=== PATIENT | male | born 1955 | race Two or more races ===

== ENCOUNTER 2022-02-19 15:05 | Inpatient (IN) | payer MEDICAID, OTHER ==
[~2022-02-19] VITALS: Ht 167.6 cm; Wt 64.5 kg
[2022-02-19 16:44] LABS: Basophils # (auto) 0 10 ^3/uL (0-0.2); Basophils % (auto) 0.5 % (0.0-2.0); Eosinophils # (auto) 0.1 10 ^3/uL (0-0.8); Eosinophils % (auto) 0.7 % (0.0-7.0); Hematocrit 47.7 % (41.0-53.0); Hemoglobin 15.7 g/dL (13.5-17.5); Lymphocytes # (auto) 1.4 10 ^3/uL (0.4-5.4); Lymphocytes % (auto) 14.6 % (10.0-50.0); Mean Corpuscular Hemoglobin 28.5 pg (28.0-32.0); Mean Corpuscular Hgb Conc. 32.9 g/dL (32.0-36.0); Mean Corpuscular Volume 86.7 fL (80.0-100.0); Monocytes # (auto) 0.7 10 ^3/uL (0-1.3); Monocytes % (auto) 7.4 % (0.0-12.0); Neutrophils # (auto) 7.5 10 ^3/uL (1.6-8.6); Neutrophils % (auto) 76.8 % (37.0-80.0); Nucleated Red Blood Cells % 0.1 %; Red Blood Cells 5.51 10^6/uL (4.5-5.90); Red Cell Distribution Width 13.8 % (11.8-14.3); White Blood Cell 9.8 10^3/uL (4.4-10.8)
[2022-02-19 17:03] LABS: Albumin 3.7 g/dL (3.4-5.0); Calcium 9.2 mg/dL (8.5-10.1); Magnesium 2.3 mg/dL (1.6-2.6)
[2022-02-19 17:07] LABS: BUN/Creatinine Ratio 22.1; Bilirubin, Total 0.2 mg/dL (0.2-1.0); Total Protein 7.1 g/dL (6.4-8.2)
[2022-02-19] MEDS ORDERED: HEPARIN SODIUM (PORCINE) 5000 UNITS/ML 1ML VIAL IV ONE (18:00)
[2022-02-19] MEDS ORDERED: CLOPIDOGREL 300 MG TAB PO ONE (18:00)
[2022-02-19] MEDS ORDERED: HEPARIN DRIP/D5W 100UNITS/ML 250 ML IV SCH (18:00)
[2022-02-19 19:02] LABS: INR 1.05 (0.9-1.15); Partial Thromboplastin Time 28.5 sec (24.6-33.4)
[2022-02-19] MEDS ORDERED: ONDANSETRON HCL 4 MG/2 ML VIAL IV PRN (21:30)
[2022-02-19] MEDS ORDERED: MORPHINE SULFATE INJ 2 MG/ml SYRG IV PRN (21:30)
[2022-02-19] MEDS ORDERED: NITROGLYCERIN 0.4 MG SL TAB SL PRN (21:30)
[2022-02-19] MEDS ORDERED: ACETAMINOPHEN 325 MG TAB PO PRN (21:30)
[2022-02-19 22:26] LABS: Urine Bacteria FEW /hpf (None Seen); Urine Blood Negative /uL (Negative); Urine Mucus FEW (None Seen); Urine Specific Gravity 1.023 (1.001-1.035); Urine WBC 7 /hpf (0 - 3)
[2022-02-19] MEDS: SODIUM CHLOR 0.9% PF (SALINE LOCK) 10ML VIAL/SYR IV SCH (22:52)
[2022-02-19] MEDS: ATORVASTATIN 20 MG TAB PO SCH (23:10)
[2022-02-20] MEDS: D5W/SOD CHLO 0.9% 1,000 ML IV SCH ×2 (00:01→10:50)
[2022-02-20 00:47] LABS: INR 1.07 (0.9-1.15); Partial Thromboplastin Time 35.6 sec (24.6-33.4)
[2022-02-20] MEDS: SODIUM CHLOR 0.9% PF (SALINE LOCK) 10ML VIAL/SYR IV SCH ×3 (06:02→22:00)
[2022-02-20 06:41] LABS: Calcium 8.6 mg/dL (8.5-10.1); Potassium 4.2 mmol/L (3.5-5.1)
[2022-02-20 06:47] LABS: Albumin 3.1 g/dL (3.4-5.0); BUN/Creatinine Ratio 24.4; Basophils # (auto) 0.1 10 ^3/uL (0-0.2); Basophils % (auto) 0.8 % (0.0-2.0); Bilirubin, Total 0.3 mg/dL (0.2-1.0); Eosinophils # (auto) 0.2 10 ^3/uL (0-0.8); Eosinophils % (auto) 2.2 % (0.0-7.0); Hematocrit 44.6 % (41.0-53.0); Hemoglobin 14.8 g/dL (13.5-17.5); Mean Corpuscular Hemoglobin 28.5 pg (28.0-32.0); Mean Corpuscular Hgb Conc. 33.3 g/dL (32.0-36.0); Mean Corpuscular Volume 85.6 fL (80.0-100.0); Monocytes # (auto) 0.6 10 ^3/uL (0-1.3); Monocytes % (auto) 8.4 % (0.0-12.0); Neutrophils # (auto) 4.7 10 ^3/uL (1.6-8.6); Neutrophils % (auto) 61.6 % (37.0-80.0); Nucleated Red Blood Cells % 0.1 %; Red Blood Cells 5.21 10^6/uL (4.5-5.90); Red Cell Distribution Width 13.5 % (11.8-14.3); Total Protein 6.2 g/dL (6.4-8.2); White Blood Cell 7.6 10^3/uL (4.4-10.8)
[2022-02-20] MEDS: ASPirin 81 mg TAB PO SCH (10:07)
[2022-02-20] MEDS: PANTOPRAZOLE 40 MG TAB PO SCH (10:07)
[2022-02-20 13:16] LABS: INR 1.04 (0.9-1.15); Partial Thromboplastin Time 38.3 sec (24.6-33.4)
[2022-02-20] MEDS: HEPARIN DRIP/D5W 100UNITS/ML 250 ML IV SCH (14:16)
[2022-02-20 23:02] LABS: INR 1.09 (0.9-1.15); Partial Thromboplastin Time 60.4 sec (24.6-33.4)
[2022-02-20] MEDS: ATORVASTATIN 20 MG TAB PO SCH (23:54)
[2022-02-20] MEDS ORDERED: NICOTINE 21MG/24 HR TOPICAL PATCH TD ONE (23:55)
[2022-02-21] VITALS (13 sets, daily range): BP systolic 121–159; BP diastolic 72–94
[2022-02-21] MEDS: D5W/SOD CHLO 0.9% 1,000 ML IV SCH (00:10)
[2022-02-21] MEDS: SODIUM CHLOR 0.9% PF (SALINE LOCK) 10ML VIAL/SYR IV SCH ×3 (05:40→20:46)
[2022-02-21 05:42] LABS: INR 1.07 (0.9-1.15)
[2022-02-21] MEDS ORDERED: HEPARIN SODIUM (PORCINE) 5000 UNITS/ML 1ML VIAL IV ONE (06:15)
[2022-02-21] MEDS ORDERED: IODIXANOL 320MG/ML 100ML BTL IV ONE (09:55)
[2022-02-21] MEDS ORDERED: LIDOCAINE 2%HCL (LOCAL ANESTH.) INJ 10ml MDV ONE (09:56)
[2022-02-21] MEDS: PANTOPRAZOLE 40 MG TAB PO SCH (10:00)
[2022-02-21] MEDS ORDERED: fentaNYL CITRATE 100 MCG/2 ML VL ONE (10:36)
[2022-02-21] MEDS ORDERED: ANGIOMAX 250 MG VIAL IV ONE (10:36)
[2022-02-21] MEDS ORDERED: MIDAZOLAM HCL 2MG/2ML 2ml VIAL (1mg/ml) ONE (10:37)
[2022-02-21] MEDS ORDERED: SODIUM CHL 0.9% 50 ML ONE (10:37)
[2022-02-21] MEDS: HEPARIN DRIP/D5W 100UNITS/ML 250 ML IV SCH (11:15)
[2022-02-21] MEDS ORDERED: VERAPAMIL 2.5MG/ML INJ 2ML VIAL IV ONE (11:40)
[2022-02-21] MEDS ORDERED: HEPARIN SODIUM (PORCINE) 5000 UNITS/ML 1ML VIAL ONE (11:40)
[2022-02-21] MEDS ORDERED: ASPirin 81 mg TAB ONE (12:07)
[2022-02-21] MEDS ORDERED: CLOPIDOGREL 300 MG TAB ONE (12:07)
[2022-02-21] MEDS: ASPirin 81 mg TAB PO SCH (12:14)
[2022-02-21] MEDS: SODIUM CHLORIDE 0.9% 1,000 ML IV SCH ×2 (14:08→16:38)
[2022-02-21] MEDS ORDERED: FLUO-126 PO (16:35)
[2022-02-21] MEDS ORDERED: ASPI1TAB20 PO (16:35)
[2022-02-21] MEDS ORDERED: PANT40TA2 PO (16:35)
[2022-02-21] MEDS: ATORVASTATIN 20 MG TAB PO SCH (20:46)
[2022-02-21] MEDS: TEMAZEPAM 15 MG CAP PO PRN (23:55)
[2022-02-22] MEDS: D5W/SOD CHLO 0.9% 1,000 ML IV SCH ×4 (02:50→18:14)
[2022-02-22 05:00] VITALS: BP 93/64
[2022-02-22] MEDS: SODIUM CHLOR 0.9% PF (SALINE LOCK) 10ML VIAL/SYR IV SCH ×3 (05:33→21:48)
[2022-02-22 08:30] VITALS: BP 121/68
[2022-02-22] MEDS: PANTOPRAZOLE 40 MG TAB PO SCH (09:29)
[2022-02-22] MEDS: CLOPIDOGREL BISULFATE 75 MG TAB PO SCH (09:29)
[2022-02-22] MEDS: ASPirin 81 mg TAB PO SCH (09:29)
[2022-02-22 12:00] VITALS: BP 120/73
[2022-02-22 16:30] VITALS: BP 108/75
[2022-02-22 21:46] VITALS: BP 127/73
[2022-02-22] MEDS: ATORVASTATIN 20 MG TAB PO SCH (21:47)
[2022-02-22] MEDS: TEMAZEPAM 15 MG CAP PO PRN (21:48)
[2022-02-23 05:00] VITALS: BP 122/66
[2022-02-23] MEDS: SODIUM CHLOR 0.9% PF (SALINE LOCK) 10ML VIAL/SYR IV SCH ×3 (06:27→21:49)
[2022-02-23 09:00] VITALS: BP 115/69
[2022-02-23] MEDS: CLOPIDOGREL BISULFATE 75 MG TAB PO SCH (09:50)
[2022-02-23] MEDS: ASPirin 81 mg TAB PO SCH (09:50)
[2022-02-23] MEDS: PANTOPRAZOLE 40 MG TAB PO SCH (09:51)
[2022-02-23] MEDS: NICOTINE 7MG/24HR TOPICAL PATCH TD SCH (09:51)
[2022-02-23 13:00] VITALS: BP 114/67
[2022-02-23] MEDS ORDERED: diphenhdrAMINE HCL 50 MG/1 ML VL IV STA (16:50)
[2022-02-23 17:00] VITALS: BP 127/74
[2022-02-23] MEDS: D5W/SOD CHLO 0.9% 1,000 ML IV SCH (18:50)
[2022-02-23] MEDS: ATORVASTATIN 20 MG TAB PO SCH (21:49)
[2022-02-23 22:00] VITALS: BP 122/68
[2022-02-23] MEDS ORDERED: diphenhdrAMINE HCL 25 MG CAP PO ONE (22:15)
[2022-02-23] MEDS ORDERED: methylPREDNISolone SOD SUCC 125 MG/2 ML VL IV ONE (22:15)
[2022-02-24] VITALS (11 sets, daily range): BP systolic 106–153; BP diastolic 64–78
[2022-02-24] MEDS: D5W/SOD CHLO 0.9% 1,000 ML IV SCH ×2 (02:59→17:41)
[2022-02-24] MEDS: SODIUM CHLOR 0.9% PF (SALINE LOCK) 10ML VIAL/SYR IV SCH ×3 (06:05→21:17)
[2022-02-24] MEDS: CLOPIDOGREL BISULFATE 75 MG TAB PO SCH (10:00)
[2022-02-24] MEDS: ASPirin 81 mg TAB PO SCH (10:00)
[2022-02-24] MEDS ORDERED: LIDOCAINE 2%HCL (LOCAL ANESTH.) INJ 10ml MDV ONE (10:03)
[2022-02-24] MEDS ORDERED: IODIXANOL 320MG/ML 100ML BTL IV ONE (10:03)
[2022-02-24] MEDS ORDERED: HEPARIN IN NS 1000Units/500mL 1,500 ML ONE (10:03)
[2022-02-24] MEDS ORDERED: ANGIOMAX 250 MG VIAL IV ONE (10:04)
[2022-02-24] MEDS ORDERED: HEPARIN SODIUM (PORCINE) 5000 UNITS/ML 1ML VIAL ONE (10:04)
[2022-02-24] MEDS ORDERED: SODIUM CHL 0.9% 50 ML ONE (10:05)
[2022-02-24] MEDS ORDERED: VERAPAMIL 2.5MG/ML INJ 2ML VIAL IV ONE (10:05)
[2022-02-24] MEDS ORDERED: fentaNYL CITRATE 100 MCG/2 ML VL ONE (10:05)
[2022-02-24] MEDS ORDERED: MIDAZOLAM HCL 2MG/2ML 2ml VIAL (1mg/ml) ONE (10:05)
[2022-02-24] MEDS ORDERED: ASPirin 81 mg TAB ONE (11:02)
[2022-02-24] MEDS ORDERED: CLOPIDOGREL BISULFATE 75 MG TAB ONE (11:02)
[2022-02-24] MEDS: PANTOPRAZOLE 40 MG TAB PO SCH (13:37)
[2022-02-24] MEDS: NICOTINE 7MG/24HR TOPICAL PATCH TD SCH (13:37)
[2022-02-24] MEDS: ATORVASTATIN 20 MG TAB PO SCH (21:17)
[2022-02-25 05:00] VITALS: BP_SYST 118; BP_SYST 144; BP_DIAS 67; BP_DIAS 81
[2022-02-25] MEDS: SODIUM CHLOR 0.9% PF (SALINE LOCK) 10ML VIAL/SYR IV SCH ×2 (05:15→07:35)
[2022-02-25] MEDS: D5W/SOD CHLO 0.9% 1,000 ML IV SCH (07:34)
[2022-02-25 08:54] VITALS: BP 119/69
[2022-02-25] MEDS: NICOTINE 7MG/24HR TOPICAL PATCH TD SCH (09:16)
[2022-02-25] MEDS: PANTOPRAZOLE 40 MG TAB PO SCH (09:17)
[2022-02-25] MEDS: ASPirin 81 mg TAB PO SCH (09:17)
[2022-02-25] MEDS: CLOPIDOGREL BISULFATE 75 MG TAB PO SCH (09:17)
[2022-02-25] MEDS ORDERED: CLOP75TA70 PO (10:48)
[2022-02-25] MEDS ORDERED: ATOR20TA50 PO (10:48)
[2022-02-25 11:41] VITALS: BP 131/74
== END 2022-02-25 13:19 | disposition home or self-care (01) | DRG 174 ==
LOC: ER 15:05 → TELE 21:16 → TELE-WESTW 02-21 04:08
PROVIDERS: ADMIT Nurse Practitioner; ATTEND Internal Medicine Pulmonary Disease
PROC: B211YZZ Fluoroscopy of Multiple Coronary Arteries using Other Contrast (ICD-10-PCS; principal; 2022-02-21)
PROC: 027034Z Dilation of Coronary Artery, One Artery with Drug-eluting Intraluminal Device, Percutaneous Approach (ICD-10-PCS; 2022-02-21)
PROC: B241ZZ3 Ultrasonography of Multiple Coronary Arteries, Intravascular (ICD-10-PCS; 2022-02-21)
PROC: 027034Z Dilation of Coronary Artery, One Artery with Drug-eluting Intraluminal Device, Percutaneous Approach (ICD-10-PCS; 2022-02-24)
PROC: B240ZZ3 Ultrasonography of Single Coronary Artery, Intravascular (ICD-10-PCS; 2022-02-24)
PROC: B210YZZ Fluoroscopy of Single Coronary Artery using Other Contrast (ICD-10-PCS; 2022-02-24)
PROC: B41CYZZ Fluoroscopy of Pelvic Arteries using Other Contrast (ICD-10-PCS; 2022-02-24)
DX: I21.4 Non-ST elevation (NSTEMI) myocardial infarction (principal); E88.09 Other disorders of plasma-protein metabolism, not elsewhere classified; I10 Essential (primary) hypertension; Z95.5 Presence of coronary angioplasty implant and graft; I25.10 Atherosclerotic heart disease of native coronary artery without angina pectoris; J44.9 Chronic obstructive pulmonary disease, unspecified; R10.13 Epigastric pain; Z20.822 Contact with and (suspected) exposure to COVID-19
CPT/HCPCS: 36415; 71045; 75710; 80053; 81001; 83735; 84443; 84484; 85025; 85610; 85730; 92928; 92978; 93005; 93306; 93454; 96365; 96376; 99152; 99153; 99291; C1874; C1887; G0378; J2001; J2250; Q9967

== ENCOUNTER 2022-04-23 16:24 | Emergency (ER) | payer MEDICAID ==
[~2022-04-23] VITALS: Ht 167.6 cm; Wt 63.1 kg
[~2022-04-23 16:24] MED LIST: ASPI1TAB20 PO; ATOR20TA50 PO; CLOP75TA70 PO; FLUO-126 PO; PANT40TA2 PO
[2022-04-23 18:55] LABS: Basophils # (auto) 0.1 10 ^3/uL (0-0.2); Basophils % (auto) 0.8 % (0.0-2.0); Eosinophils # (auto) 0.1 10 ^3/uL (0-0.8); Eosinophils % (auto) 1.9 % (0.0-7.0); Hematocrit 47.4 % (41.0-53.0); Hemoglobin 15.3 g/dL (13.5-17.5); Lymphocytes # (auto) 1.4 10 ^3/uL (0.4-5.4); Lymphocytes % (auto) 18.5 % (10.0-50.0); Mean Corpuscular Hemoglobin 28.1 pg (28.0-32.0); Mean Corpuscular Hgb Conc. 32.2 g/dL (32.0-36.0); Mean Corpuscular Volume 87.3 fL (80.0-100.0); Monocytes # (auto) 0.5 10 ^3/uL (0-1.3); Monocytes % (auto) 6.2 % (0.0-12.0); Neutrophils # (auto) 5.7 10 ^3/uL (1.6-8.6); Neutrophils % (auto) 72.6 % (37.0-80.0); Nucleated Red Blood Cells % 0.1 %; Red Blood Cells 5.43 10^6/uL (4.5-5.90); Red Cell Distribution Width 13.9 % (11.8-14.3); White Blood Cell 7.8 10^3/uL (4.4-10.8)
[2022-04-23 19:07] LABS: Albumin 3.9 g/dL (3.4-5.0); BUN/Creatinine Ratio 28.9; Calcium 8.9 mg/dL (8.5-10.1); Magnesium 2.2 mg/dL (1.6-2.6)
[2022-04-23 19:10] LABS: Bilirubin, Total 0.2 mg/dL (0.2-1.0); Total Protein 7.1 g/dL (6.4-8.2)
[2022-04-23 20:45] VITALS: BP 134/83
== END 2022-04-23 22:28 | disposition home or self-care (01) ==
LOC: ER 16:24
DX: R51.9 Headache, unspecified (principal); I25.2 Old myocardial infarction; I25.10 Atherosclerotic heart disease of native coronary artery without angina pectoris; E78.5 Hyperlipidemia, unspecified; F17.210 Nicotine dependence, cigarettes, uncomplicated
CPT/HCPCS: 36415; 70450; 80053; 83735; 84484; 85025

== ENCOUNTER 2025-06-22 03:07 | Emergency (ER) | payer OTHER, MEDICAID ==
[~2025-06-22] VITALS: Ht 167.6 cm; Wt 63.6 kg
--- NOTE | 2025-06-22 03:17 | ECG ---
[facility] Test Date: 2025-06-22 Test Time: 03:11:50 Pat Name: JUDITH GODFREY Department: ED Room: Gender: M Pain Coordinator: VIKI : 1955 Requested By: EMERGENCY EMERGENCY Order Number: [id number] Reading MD: Matt Zhang Measurements Intervals [place] Rate: 95 P: 89 GA: 234 QRS: 82 QRSD: 118 T: 102 QT: 356 QTc: 448 Interpretive Statements Sinus rhythm Prolonged GA interval IRBBB and LPFB Nonspecific repol abnormality, lateral leads Baseline wander in lead(s) I,II,aVR,aVF Electronically Signed On 06-23-2025 15:45:57 PST by Matt Zhang Please click the below link to view image of tracing.
--- NOTE | 2025-06-22 03:36 | ED.PDOC ---
History of Present Illness HPI Comments 69-year-old male with PMHx COPD, CAD, AR, chronic cough, chronic smoker who presents to the ED via EMS with a chief complaint of shortness of breath onset 2 weeks. Per EMS, patient has been experiencing intermittent shortness of breath with the past 2 weeks, notice chronic cough has worsened. Patient's states his BP was low, shortness of breath worsening, called 911. Upon EMS arrival patient's BP was 94/57. Denies chest pain, headache, dizziness, fever, chills, nausea, vomiting, diarrhea, congestion. No other symptoms or modifying factors present at this time. PHYSICAL EXAM: General: Awake, alert and oriented. Skin: Skin in warm, dry and intact. Appropriate color for ethnicity. HEENT: The head is normocephalic and atraumatic. Conjunctivae are clear without exudates or hemorrhage. Sclera is non-icteric. Eyelids are normal in appearance without swelling or lesions. Oral mucosa is pink and moist Neck: The neck is supple with normal range of motion. No JVD. Cardiac: Heart rate and rhythm are normal. No murmurs, gallops, or rubs are auscultated. Respiratory: No signs of respiratory distress. Lung sounds are clear in all lobes bilaterally without rales, rhonchi, or wheezes. Abdominal: Abdomen is soft, non-tender without distention, guarding or rigidity. Bowel sounds are present and normoactive in all four quadrants. Extremities: Upper and lower extremities are atraumatic in appearance without deformity or edema. Neurological: The patient is awake, alert and oriented to person, place, and time with normal speech. Speech is clear. There is no facial asymmetry. Psychiatric: Appropriate mood and affect. Good judgement and insight. REVIEW OF SYSTEMS: General: No fever, no chills, or fatigue HEENT: No sore throat, no earache, no congestion, no neck pain. Cardiac: Hypotensive. No chest pain. No palpitations. Lungs: Shortness of breath, cough GI: No nausea, no vomiting, no diarrhea, no constipation, no abdominal pain : No dysuria, frequency, or urgency. No hematuria. Musculoskeletal: No joint pain , no joint swelling, no extremity edema. Skin: No rash, no itching. Neuro: No headache, no dizziness, no weakness (And as sated in HPI) Chief Complaint: Shortness of Breath Time Seen by MD: 03:30 Primary Care Provider: Meche Angela Notes: Medications, Allergies Allergies: Coded Allergies: NO KNOWN ALLERGIES (Unverified , 02/19/22) Home Meds Active Scripts Albuterol Sulfate (VENTOLIN MDI) 90 Mcg Ih, 90 MCG IN QID for 15 Days, #1 INH Prov:SVETA LEIGH MD 06/22/25 Clopidogrel Bisulfate (CLOPIDOGREL) 75 Mg Tab, 75 MG PO DAILY for 30 Days, #30 TAB Prov:MERRY ROBLES MD 02/25/22 Atorvastatin Calcium (ATORVASTATIN CALCIUM) 20 Mg Tab, 20 MG PO HS for 30 Days, #30 TAB Prov:MERRY ROBLES MD 02/25/22 Reported Medications Aspirin (Aspir-81) 81 Mg Tab, 1 TAB PO DAILY, #30 TAB 5 Refills 02/21/22 Fluoxetine Hcl (Fluoxetine Hcl) 10 Mg Cap, 1 TAB PO DAILY, MG 02/21/22 Pantoprazole Sodium Sesquihydr (Protonix) 40 Mg Tab, 1 TAB PO DAILY, #30 TAB 02/21/22 Information Source: Patient, Emergency Med Personnel Mode of Arrival: EMS Severity: Moderate Timing: Weeks Duration: Since onset Prehospital treatment: None Past Medical History PAST MEDICAL HISTORY: CAD, COPD, Depression, High Lipids, AR Surgical History: PTCA Family History Family History: Reviewed,noncontributory to illness Social History Smoker: Cigarettes Alcohol: Denies ETOH Use Drugs: Denies Drug Use Lives In: Home Was a procedure done? Was a procedure done?: No EKG EKG : Comments ATIENT: JUDITH GODFREY ACCT: [id number] : 1955 LOC: ER ROOM / BED: / AGE / SEX: 69 / M ADM STATUS: REG ER SERVICE UNIT: [id number] ORDERING PHYSICIAN: ER PROCEDURE(s): EKG - ELECTROCARDIGRAM ORDER NUMBER(s): [id number], ACCESSION NUMBER(s): [id number] [facility] Test Date: 2025-06-22 Test Time: 03:11:50 Pat Name: JUDITH GODFREY Department: ED Room: Gender: M Fifth Hand: VIKI : 1955 Requested By: EMERGENCY EMERGENCY Order Number: [id number] Reading MD: Measurements Intervals [place] Rate: 95 P: 89 [place]: 234 QRS: 82 QRSD: 118 T: 102 QT: 356 QTc: 448 Interpretive Statements Sinus rhythm Prolonged [place] interval IRBBB and LPFB Nonspecific repol abnormality, lateral leads Baseline wander in lead(s) I,II,aVR,aVF Differential Dx Considerations may include: Differential diagnoses considered includebut arenot limited to acute Bronchitis, Asthma, COPD, Pneumothorax, PE, CHF, Pulmonary HTN, Anemia, CO Poisoning, Methemoglobinemia, Hyperventilation, Metabolic Acidosis, Pulmonary Edema, Pneumonia, ACS, Pericardial Tamponade, Anxiety, other X-Ray, Labs, Meds, VS Vital Signs Date Time Temp Pulse Resp B/P (MAP) Pulse Ox O2 Delivery O2 Flow Rate FiO2 06/22/25 07:19 84 17 114/74 (87) 96 06/22/25 06:32 98.3 91 18 96 98.3 06/22/25 04:18 20 98 Room Air* 0 21 06/22/25 03:15 98.7 102 16 115/70 96 98.7 06/22/25 03:11 95 Lab Test 06/22/25 04:14 Range/Units White Blood Count 8.8 4.4-10.8 10^3/uL Red Blood Count 5.06 4.5-5.90 10^6/uL Hemoglobin 15.6 13.5-17.5 g/dL Hematocrit 44.8 41.0-53.0 % Mean Corpuscular Volume 88.6 80.0-100.0 fL Mean Corpuscular Hemoglobin 30.8 28.0-32.0 pg Mean Corpuscular Hemoglobin Concent 34.7 32.0-36.0 g/dL Red Cell Distribution Width 15.2 H 11.8-14.3 % Platelet Count 275 140-450 10^3/uL Mean Platelet Volume 7.3 6.9-10.8 fL Neutrophils (%) (Auto) 61.7 37.0-80.0 % Lymphocytes (%) (Auto) 27.2 10.0-50.0 % Monocytes (%) (Auto) 9.1 0.0-12.0 % Eosinophils (%) (Auto) 1.1 0.0-7.0 % Basophils (%) (Auto) 0.9 0.0-2.0 % Neutrophils # (Auto) 5.4 1.6-8.6 10 ^3/uL Lymphocytes # (Auto) 2.4 0.4-5.4 10 ^3/uL Monocytes # (Auto) 0.8 0-1.3 10 ^3/uL Eosinophils # (Auto) 0.1 0-0.8 10 ^3/uL Basophils # (Auto) 0.1 0-0.2 10 ^3/uL Nucleated Red Blood Cells 0.2 % Sodium Level 140 136-145 mmol/L Potassium Level 4.0 3.5-5.1 mmol/L Chloride Level 108 H 98-107 mmol/L Carbon Dioxide Level 22 20-31 mmol/L Anion Gap 10 5-15 Blood Urea Nitrogen 9 9-23 mg/dL Creatinine 0.93 0.700-1.30 mg/dL Glomerular Filtration Rate Calc 90 >90 mL/min BUN/Creatinine Ratio 9.7 L 10.0-20.0 Serum Glucose 114 H 74-106 mg/dL Calcium Level 10.0 8.7-10.4 mg/dL Troponin I High Sensitivity 6 </=54 ng/L B-Type Natriuretic Peptide 16.86 0-100 pg/mL Current Medications Medications (Trade) Dose Ordered Sig/Tati Route Start Time Stop Time Status Last Admin Albuterol (Ventolin Medneb) 2.5 mg ONCE ONCE NEB 06/22/25 04:00 06/22/25 04:01 DC 06/22/25 04:17 PATIENT: RUBIO GODFREYT: [id number]: [id number] : 1955 LOC: ER ROOM / BED: / AGE / SEX: 69 / M ADM STATUS: REG ER SERVICE [id number] ORDERING PHYSICIAN: SVETA LEIGH MD PROCEDURE(s): CXR2 - CHEST TWO VIEWS ROUTINE REASON: Shortness of breath, cough ORDER NUMBER(s): [id number], ACCESSION NUMBER(s): [id number] MEDICAL RECORDS NUMBER: [id number] PROCEDURE: XY CHEST TWO VIEWS ROUTINE DATE: 06/22/2025 05:43 AM HISTORY: Shortness of breath, cough Views:1 COMPARISON: None FINDINGS/IMPRESSION: Lungs: Diffuse minor chronic changes of the lungs are noted. No acute lung pathology is seen. Mediastinum: Mediastinal structures appear unremarkable... Skeletal: The skeletal structures appear unremarkable. ATED BY: ELIO GILLESPIE MD DICTATED DATE/TIME: 06/22/25612 SIGNED BY: ELIO GILLESPIE MD SIGNED DATE/TIME: 06/22/25612 CC: Time of 1ST Reevaluation: 04:00 Reevaluation 1ST: Unchanged Consultation: PCP Patient Education/Counseling: Need For Follow Up Family Education/Counseling: No Family Present SEPSIS Sepsis Screen Physician Orders Chest Two Views Routine (06/22/25 03:52) Vital Signs Date Time Temp Pulse Resp B/P (MAP) Pulse Ox O2 Delivery O2 Flow Rate FiO2 06/22/25 07:19 84 17 114/74 (87) 96 06/22/25 06:32 98.3 91 18 96 98.3 06/22/25 04:18 20 98 Room Air* 0 21 06/22/25 03:15 98.7 102 16 115/70 96 98.7 06/22/25 03:11 95 Laboratory Tests Test 06/22/25 04:14 White Blood Count 8.8 10^3/uL (4.4-10.8) Departure 1 Departure Time of Disposition: 05:53 Impression: Primary Impression: Shortness of breath Disposition: 01 HOME / SELF CARE / HOMELESS Condition: Stable Additional Instructions: ED DISCHARGE INSTRUCTIONS Instructions: Please read all instructions provided in this packet carefully. Although you have been discharged from the Emergency Department, this does not mean that you have a "clean bill of health". No definitive diagnosis for your symptoms has been made today. It is possible that you are in the process of developing a serious illness. This is why you must return to the ED without fail if any new or worsening symptoms (especially if your symptoms include chest pain, trouble breathing, abdominal pain, fever, headache, confusion, trouble seeing, or trouble walking) It is also very important that you see a primary care provider (PCP) within the next 1-3 days to follow up. If you are unable to get an appointment, return to the ED for re-evaluation. SHORTNESS OF BREATH EDUCATION Shortness of breath has many causes. Sometimes conditions such as anxiety can lead to shortness of breath. Some people get mild shortness of breath when they exercise. Trouble breathing also can be a symptom of a serious problem, such as asthma, lung disease, emphysema, heart problems, and pneumonia. If your shortness of breath continues, you may need tests and treatment. Watch for any changes in your breathing and other symptoms. Follow-up care is a hinds part of your treatment and safety. Be sure to make and go to all appointments, and call your doctor if you are having problems. It's also a good idea to know your test results and keep a list of the medicines you take. How can you care for yourself at home? Do not smoke or allow others to smoke around you. If you need help quitting, talk to your doctor about stop-smoking programs and medicines. These can increase your chances of quitting for good. Get plenty of rest and sleep. Take your medicines exactly as prescribed. Call your doctor if you think you are having a problem with your medicine. Find healthy ways to deal with stress. Exercise daily. Get plenty of sleep. Eat regularly and well. When should you call for help? Call 911 anytime you think you may need emergency care. For example, call if: You have severe shortness of breath. You have symptoms of a heart attack. These may include: Chest pain or pressure, or a strange feeling in the chest. Sweating. Shortness of breath. Nausea or vomiting. Pain, pressure, or a strange feeling in the back, neck, jaw, or upper belly or in one or both shoulders or arms. Lightheadedness or sudden weakness. A fast or irregular heartbeat. After you call 911, the heavy media operator may tell you to chew 1 adult-strength or 2 to 4 low-dose aspirin. Wait for an ambulance. Do not try to drive yourself. Call your doctor now or seek immediate medical care if: Your shortness of breath gets worse or you start to wheeze. Wheezing is a high- pitched sound when you breathe. You wake up at night out of breath or have to prop your head up on several pillows to breathe. You are short of breath after only light activity or while at rest. Watch closely for changes in your health, and be sure to contact your doctor if: You do not get better over the next 1 to 2 days. Credits for Shortness of Breath: Care Instructions Current as of: March 09, 2024 Author: [employer] Staff e-Prescriptions Albuterol Sulfate (VENTOLIN GRETA) 90 Mcg Ih 90 MCG IN QID for 15 Days, #1 INH Prov: SVETA LEIGH MD 06/22/25 Comments 69-year-old male with shortness of breath. EKG negative for signs of ischemia. High sensitivity troponin negative. CXR shows no acute process. Presentation not suggestive of acute coronary syndrome, pulmonary embolism or aortic dissection. Patient improved at time of discharge. Patient has not been hypoxic, in respiratory distress or dyspneic during the ED observation. Patient able to ambulate without difficulty. Patient felt stable for discharge to follow up with PCP promptly. Patient advised to return to the ED with any new, worsening or concerning symptoms or inability to follow up with PCP. Critical Care Note Critical Care Time?: No Stability Stability form required: No Heart Score Heart Score: Heart Score Response (Comments) Value History N/A 0 EKG N/A 0 Age N/A 0 Risk Factors N/A 0 Troponin N/A 0 Total 0 I personally scribed for SVETA LEIGH MD ([email or web address]) on 06/22/25 at 03:36. Electronically submitted by Heather Chirinos ([email or web address]). I personally scribed for SVETA LEIGH MD ([email or web address]) on 06/22/25 at 03:37. Electronically submitted by Heather Chirinos ([email or web address]). SVETA LEIGH MD Jun 22, 2025 03:36
[2025-06-22] MEDS: ALBUTEROL SULF 2.5 MG/0.5ML(0.5%) NEB SOLN NEB ONE (04:17)
[2025-06-22 04:23] LABS: Hematocrit 44.8 % (41.0-53.0); Hemoglobin 15.6 g/dL (13.5-17.5); Mean Corpuscular Hemoglobin 30.8 pg (28.0-32.0); Mean Corpuscular Volume 88.6 fL (80.0-100.0); Nucleated Red Blood Cells % 0.2 %
[2025-06-22 04:38] LABS: Potassium 4.0 mmol/L (3.5-5.1); Sodium 140 mmol/L (136-145)
[2025-06-22 04:39] LABS: Anion Gap 10 (5-15); Carbon Dioxide 22 mmol/L (20-31)
[2025-06-22 04:40] LABS: Calcium 10.0 mg/dL (8.7-10.4)
[2025-06-22 04:45] LABS: BUN/Creatinine Ratio 9.7 (10.0-20.0); Blood Urea Nitrogen 9 mg/dL (9-23)
[2025-06-22 04:49] LABS: Chloride 108 mmol/L (98-107); Glucose 114 mg/dL (74-106)
[2025-06-22] MEDS ORDERED: ALBUAER3 IN (05:54)
--- NOTE | 2025-06-22 06:15 | DVH ---
MEDICAL RECORDS NUMBER: [id number] PROCEDURE: XY CHEST TWO VIEWS ROUTINE DATE: 06/22/2025 05:43 AM HISTORY: Shortness of breath, cough Views:1 COMPARISON: None FINDINGS/IMPRESSION: Lungs: Diffuse minor chronic changes of the lungs are noted. No acute lung pathology is seen. Mediastinum: Mediastinal structures appear unremarkable... Skeletal: The skeletal structures appear unremarkable.
[2025-06-22 06:32] VITALS: TEMP 98.3
[2025-06-22 07:19] VITALS: BP 114/74; PULSE 84; RESP 17; O2SAT 96
== END 2025-06-22 07:46 | disposition home or self-care (01) ==
LOC: EDBD 03:07 → ER 03:07
DX: R06.02 Shortness of breath (principal); F17.210 Nicotine dependence, cigarettes, uncomplicated; F32.A Depression, unspecified; E78.5 Hyperlipidemia, unspecified; I25.10 Atherosclerotic heart disease of native coronary artery without angina pectoris; I25.2 Old myocardial infarction; J44.9 Chronic obstructive pulmonary disease, unspecified; Z79.899 Other long term (current) drug therapy; Z79.02 Long term (current) use of antithrombotics/antiplatelets; Z79.82 Long term (current) use of aspirin
CPT/HCPCS: 36415; 71046; 80048; 83880; 84484; 85025; 93005; 94640